=== PATIENT | female | born 1935 | race Caucasian/White ===

== ENCOUNTER 2016-05-19 10:23 | Emergency (ER) | payer OTHER ==
[2016-05-19 10:29] VITALS: BP 131/77; PULSE 90; TEMP 98.5; BMI 24.6
[2016-05-19] MEDS ORDERED: ACETAMINOPHEN 325 MG TABLET (FP) PO ONE (12:13)
--- NOTE | 2016-05-19 12:13 | PDOC ---
History of Present Illness - General Chief Complaint: Injury Stated Complaint: FALL, FOOT PAIN Time Seen by Provider: 05/19/16 12:05 History Source: Patient Exam Limitations: No Limitations - History of Present Illness Initial Comments: CHIEF COMPLAINT: 81 y/o afebrile female with PMH HTN, ACS (on Eliquis), CHF c/ o left ankle pain s/p slip and fall yesterday. HISTORY OF PRESENT ILLNESS: The patient slipped in her driveway yesterday and turned her ankle in an eversion fashion. She states she was able to walk on it but with pain. She put an MIGUE bandage on it and took tylenol. She denies head trauma, LOC, numbness/tingling in affected extremity. Vital signs on arrival are within normal limits. REVIEW OF SYSTEMS: GENERAL/CONSTITUTIONAL: No fever/chills. No weakness. No weight change. HEAD, EYES, EARS, NOSE AND THROAT: No change in vision. No ear pain or discharge. No sore throat. MUSCULOSKELETAL: +left ankle pain and swelling. No neck or back pain. SKIN: No rash or easy bruising. NEUROLOGIC: No headache, vertigo, loss of consciousness, or loss of sensation. PHYSICAL EXAM: VITAL_SIGNS: within normal limits GENERAL_APPEARANCE: alert, cooperative, no obvious discomfort. MENTAL_STATUS: speech clear, oriented X 3, responds appropriately to questions. NEURO: motor intact and sensory intact in injured extremity. EXTREMITIES: 2+ dorsalis pedis pulse in left foot. Edema and TTP of lateral malleolus of left ankle. Pain reproduced with eversion of left ankle. Pt can fully flex and extend affected extremity. No erythema, warmth or streaking to affected extremity. SKIN: warm, dry, good color. Past History - Past Medical History Allergies/Adverse Reactions: Allergies Allergy/AdvReac Type Severity Reaction Status Date / Time No Known Allergies Allergy Verified 05/19/16 10:29 Home Medications: Ambulatory Orders Aspirin [ASA -] 81 mg PO DAILY 09/14/14 Cholecalciferol (Vitamin D3) [Vitamin D3] 2,000 unit PO DAILY 09/14/14 Digoxin [Lanoxin -] 0.125 mg PO DAILY 09/14/14 Furosemide [Lasix -] 20 mg PO DAILY 09/14/14 Lactobacillus Acidophilus [Acidophilus] 1 tape PO DAILY 09/14/14 Metoprolol Succinate [Toprol Xl -] 50 mg PO DAILY 09/14/14 Sertraline HCl [Zoloft -] 25 mg PO DAILY 09/14/14 Valsartan [Diovan] 80 mg PO DAILY 09/14/14 Warfarin Na [Coumadin] 2 mg PO DAILY 09/14/14 Cardiac Disorders: Yes (MVP, leaky valve) COPD: Yes GI Disorders: Yes (hiatal hernia, GERD) HTN: Yes - Surgical History Cholecystectomy: Yes - Immunization History Immunization Up to Date: Yes - Psycho/Social/Smoking Cessation Hx Anxiety: No Suicidal Ideation: No Smoking Status: No Smoking History: Never smoked Have you smoked in the past 12 months: No Number of Cigarettes Smoked Daily: 0 Hx Alcohol Use: No Drug/Substance Use Hx: No Substance Use Type: None Hx Substance Use Treatment: No *Physical Exam - Vital Signs Last Vital Signs Temp Pulse Resp BP Pulse Ox 98.5 F 90 20 131/77 97 05/19/16 10:25 05/19/16 10:25 05/19/16 10:25 05/19/16 10:25 05/19/16 10:25 Procedures - Splinting Splint Location: Left: Ankle Pre-Proc Neuro Vasc Exam: normal Hand-Made Type: orthoglass Splint Type: Yes: Posterior Post-Proc Neuro Vasc Exam: normal Migue Bandage: 3" (2) Complications: No Medical Decision Making - Medical Decision Making A/P: 81 y/o female with left ankle sprain s/p slip and fall yesterday. Will r/ o fracture with an xray. Pt requesting tylenol. Xray left ankle IMPRESSION: Distal fibular fracture with lateral swelling. Put the patient's ankle in a posterior splint. Provided crutches and an orthopedic referral. Suggested she call Dr. Rivero today to schedule a follow up appointment as soon as possible. Pt instructed to return to the ER with any worsening or concerning symptoms. The patient verbalizes understanding of all instructions, has no further questions and is awaiting discharge. *DC/Admit/Observation/Transfer Diagnosis at time of Disposition: Fibula fracture Qualifiers: Encounter type: initial encounter Fibula location: distal Fracture type: closed Fracture morphology: other fracture Laterality: left Qualified Code(s): S82.832A - Other fracture of upper and lower end of left fibula, initial encounter for closed fracture - Discharge Dispostion Disposition: HOME Condition at time of disposition: Improved - Referrals Referrals: Chandrakant Wyatt MD [Primary Care Provider] - Clint Rivero MD [Staff Physician] - Call tomorrow - Patient Instructions Printed Discharge Instructions: DI for Ankle Fracture, How to Use Crutches Additional Instructions: Discharge Instructions: -Call Dr. Rivero as soon as possible to schedule follow up appointment -Use crutches until follow up appointment with Dr. Rivero -Take Tylenol for pain -Return to the ER with any worsening or concerning symptoms.
[2016-05-19] MEDS ORDERED: ACETAMINOPHEN 325 MG TABLET (FP) ONE (12:20)
== END 2016-05-19 13:40 | disposition home or self-care (01) ==
LOC: JER 10:23 → JERFT 10:23
PROC: 2W3TX1Z Immobilization of Left Foot using Splint (ICD-10-PCS; principal; 2016-05-19)
DX: S82.832A Other fracture of upper and lower end of left fibula, initial encounter for closed fracture (principal); X58.XXXA Exposure to other specified factors, initial encounter; Y93.9 Activity, unspecified; Y92.008 Other place in unspecified non-institutional (private) residence as the place of occurrence of the external cause; J44.9 Chronic obstructive pulmonary disease, unspecified; I10 Essential (primary) hypertension; K21.9 Gastro-esophageal reflux disease without esophagitis; Z79.82 Long term (current) use of aspirin
CPT/HCPCS: 29515; 73610-TC-LT; 73630-TC-LT; 99282-25

== ENCOUNTER 2017-11-21 17:24 | Observation (INO) | payer OTHER ==
--- NOTE | 2017-11-21 17:33 | PDOC ---
Rapid Medical Evaluation Time Seen by Provider: 11/21/17 17:29 Medical Evaluation: Allergies Allergy/AdvReac Type Severity Reaction Status Date / Time No Known Allergies Allergy Verified 05/19/16 10:29 11/21/17 17:29 I have performed a brief in-person evaluation of this patient. The patient presents with a chief complaint of: new onset a-fib. Patient seen at doctor's office today and referred to ed for irregular heartbeat. Complaining of a cough and shortness of breath Pertinent physical exam findings are appears well lungs clear bilaterally Heart: irregular rhythm I have ordered the following ekg, labs The patient will proceed to the Ed for further evaluation. Discharge Disposition - Referrals Referrals: Melissa Mccurdy MD [Primary Care Provider] - - Patient Instructions - Post Discharge Activity
[2017-11-21 17:34] VITALS: BMI 25.5
[2017-11-21] MEDS ORDERED: SODIUM CHLORIDE 500 ML IV STA (17:53)
--- NOTE | 2017-11-21 17:55 | PDOC ---
History of Present Illness - General Chief Complaint: Irregular Heart Beat Stated Complaint: SENT BY PCP Time Seen by Provider: 11/21/17 17:29 History Source: Patient, Family - History of Present Illness Associated Symptoms: reports: cough. denies: chest pain, fever/chills, shortness of breath, weakness Past History - Past Medical History Allergies/Adverse Reactions: Allergies Allergy/AdvReac Type Severity Reaction Status Date / Time No Known Allergies Allergy Verified 11/21/17 17:31 Home Medications: Ambulatory Orders Metoprolol Succinate [Toprol Xl -] 50 mg PO BID 09/14/14 Sertraline HCl [Zoloft -] 25 mg PO DAILY 09/14/14 Alendronate Sodium [Binosto] 70 mg PO Q7D 11/21/17 Apixaban [Eliquis] 2.5 mg PO DAILY 11/21/17 Ferrous Sulfate 325 mg PO DAILY 11/21/17 Hydralazine HCl 50 mg PO DAILY 11/21/17 Olmesartan Medoxomil 20 mg PO DAILY 11/21/17 Pantoprazole Sodium 40 mg PO DAILY 11/21/17 Tiotropium [place] [Spiriva] 1 inh IH DAILY 11/21/17 Cardiac Disorders: Yes (MVP, leaky valve, hx of a.fib) COPD: Yes GI Disorders: Yes (hiatal hernia, GERD) HTN: Yes - Surgical History Cardiac Surgery: Yes (ppm) Cholecystectomy: Yes - Immunization History Immunization Up to Date: Yes - Suicide/Smoking/Psychosocial Hx Smoking Status: No Smoking History: Never smoked Have you smoked in the past 12 months: No Number of Cigarettes Smoked Daily: 0 Information on smoking cessation initiated: No Hx Alcohol Use: No Drug/Substance Use Hx: No Substance Use Type: None Hx Substance Use Treatment: No Review of Systems - Review of Systems Constitutional: No: Chills, Fever Respiratory: Yes: Cough. No: Shortness of Breath Cardiac (ROS): Yes: Palpitations. No: Chest Pain *Physical Exam - Vital Signs Last Vital Signs Temp Pulse Resp BP Pulse Ox 98.4 F 116 H 18 127/76 100 11/21/17 17:31 11/21/17 17:31 11/21/17 17:31 11/21/17 17:31 11/21/17 17:31 - Physical Exam General Appearance: Yes: Appropriately Dressed. No: Apparent Distress HEENT: positive: Normal Voice Neck: positive: Supple Respiratory/Chest: positive: Lungs Clear, Normal Breath Sounds. negative: Respiratory Distress Cardiovascular: positive: Irregularly Irregular Gastrointestinal/Abdominal: positive: Soft. negative: Tender Extremity: positive: Normal Inspection. negative: Pedal Edema Integumentary: positive: Dry, Warm Neurologic: positive: Fully Oriented, Alert, Normal Mood/Affect ED Treatment Course - LABORATORY CBC & Chemistry Diagram: 11/21/17 18:35 11/21/17 18:35 Medical Decision Making - Medical Decision Making 11/21/17 17:54 82-year-old female, history of A. 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 Pt reports non-productive cough for approximately 1 week, no hemoptysis, shortness of breath, chest pain, fever or chills. Found to have irregular heart rate in card's office today per family. Patient does report intermittent palpitations. No weakness, dizziness or syncope See exam Rapid afib Afib @124BPM on EKG done at triage [facility] rebecca in NAD -will attempt to slow down HR w/ IVF given HR of 110 on monitor now -already on eliquis -labs -cxr r/o PNA given cough -dispo pending 11/21/17 18:00 11/21/17 18:53 On reassessment, pt's HR now 102 on monitor w/ gentle IV hydration. At this time pt signed out to Dr Ruiz pending w/u and dispo *DC/Admit/Observation/Transfer Diagnosis at time of Disposition: Cough Afib Qualifiers: Atrial fibrillation type: chronic Qualified Code(s): I48.2 - Chronic atrial fibrillation - Referrals Referrals: Melissa Mccurdy MD [Primary Care Provider] - - Patient Instructions - Post Discharge Activity
[2017-11-21 18:46] LABS: BASO % 0.8 % (0-2.0); EOS % 2.6 % (0-4.5); HEMATOCRIT 36.2 % (32.4-45.2); HEMOGLOBIN 12.1 GM/dL (10.7-15.3); LYMPH % 18.8 % (8-40); MCH 29.4 pg (25.7-33.7); MCHC 33.5 g/dl (32.0-36.0); MEAN CELL VOLUME 87.9 fl (80-96); MEAN PLT VOLUME 9.4 fl (7.5-11.1); MONO % 11.1 % (3.8-10.2); NEUT % 66.7 % (42.8-82.8); PLATELET COUNT 240 K/MM3 (134-434); RBC 4.11 M/mm3 (3.60-5.2); RDW 14.3 % (11.6-15.6); WHITE BLOOD COUNT 9.4 K/mm3 (4.0-10.0)
[2017-11-21 19:15] LABS: INR 1.11 (0.83-1.09); PROTHROMBIN TIME (PATIENT) 13.1 SEC (9.7-13.0)
[2017-11-21 19:17] LABS: ACTIVATED PTT 27.9 SECONDS (25.2-36.5)
[2017-11-21 19:30] LABS: ALBUMIN 3.4 g/dl (3.4-5.0); ALK PHOS 55 U/L (45-117); ANION GAP 8 MMOL/L (8-16); BILIRUBIN,TOTAL 0.7 mg/dL (0.2-1); BLOOD UREA NITROGEN 18 mg/dL (7-18); CALCIUM 8.7 mg/dL (8.5-10.1); CHLORIDE 110 mmol/L (98-107); CO2 22 mmol/L (21-32); CREATININE 1.1 mg/dL (0.55-1.3); GLUCOSE,RANDOM 93 mg/dL (74-106); POTASSIUM 4.1 mmol/L (3.5-5.1); SGOT/AST 23 U/L (15-37); SGPT/ALT 18 U/L (13-61); SODIUM 140 mmol/L (136-145); TOT PROT 7.3 g/dl (6.4-8.2)
[2017-11-21] MEDS ORDERED: FUROSEMIDE 40 MG/4 ML INJECTABLE VIAL IVPUSH ONE (20:20)
--- NOTE | 2017-11-21 20:35 | PDOC ---
History of Present Illness - General Chief Complaint: Irregular Heart Beat Stated Complaint: SENT BY PCP Time Seen by Provider: 11/21/17 17:29 Past History - Past Medical History Allergies/Adverse Reactions: Allergies Allergy/AdvReac Type Severity Reaction Status Date / Time No Known Allergies Allergy Verified 11/21/17 17:31 Home Medications: Ambulatory Orders Metoprolol Succinate [Toprol Xl -] 50 mg PO BID 09/14/14 Sertraline HCl [Zoloft -] 25 mg PO DAILY 09/14/14 Alendronate Sodium [Binosto] 70 mg PO Q7D 11/21/17 Apixaban [Eliquis] 2.5 mg PO DAILY 11/21/17 Ferrous Sulfate 325 mg PO DAILY 11/21/17 Hydralazine HCl 50 mg PO DAILY 11/21/17 Olmesartan Medoxomil 20 mg PO DAILY 11/21/17 Pantoprazole Sodium 40 mg PO DAILY 11/21/17 Tiotropium [place] [Spiriva] 1 inh IH DAILY 11/21/17 Cardiac Disorders: Yes (MVP, leaky valve, hx of a.fib) COPD: Yes GI Disorders: Yes (hiatal hernia, GERD) HTN: Yes - Surgical History Cardiac Surgery: Yes (ppm) Cholecystectomy: Yes - Immunization History Immunization Up to Date: Yes - Suicide/Smoking/Psychosocial Hx Smoking Status: No Smoking History: Never smoked Have you smoked in the past 12 months: No Number of Cigarettes Smoked Daily: 0 Information on smoking cessation initiated: No Hx Alcohol Use: No Drug/Substance Use Hx: No Substance Use Type: None Hx Substance Use Treatment: No *Physical Exam - Vital Signs Last Vital Signs Temp Pulse Resp BP Pulse Ox 98.4 F 116 H 18 127/76 97 11/21/17 17:31 11/21/17 17:31 11/21/17 17:31 11/21/17 17:31 11/21/17 18:25 ED Treatment Course - LABORATORY CBC & Chemistry Diagram: 11/21/17 18:35 11/21/17 18:35 - ADDITIONAL ORDERS Additional order review: Laboratory Results 11/21/17 11/21/17 11/21/17 18:35 18:35 18:35 PT with INR 13.10 H INR 1.11 H PTT (Actin FS) 27.9 Sodium 140 Potassium 4.1 Chloride 110 H Carbon Dioxide 22 Anion Gap 8 BUN 18 Creatinine 1.1 Creat Clearance w eGFR 47.32 Random Glucose 93 Calcium 8.7 Total Bilirubin 0.7 AST 23 ALT 18 Alkaline Phosphatase 55 Troponin I < 0.02 B-Natriuretic Peptide 4016.8 H Total Protein 7.3 Albumin 3.4 11/21/17 18:35 RBC 4.11 MCV 87.9 MCHC 33.5 RDW 14.3 D MPV 9.4 D Neutrophils % 66.7 Lymphocytes % 18.8 D Monocytes % 11.1 H Eosinophils % 2.6 D Basophils % 0.8 - Medications Given in the ED: ED Medications Discontinued Medications Generic Name Dose Route Start Last Admin Trade Name Freq PRN Reason Stop Dose Admin Sodium Chloride 500 mls @ 500 mls/hr 11/21/17 17:53 11/21/17 18:42 Normal Saline - IV 11/21/17 18:52 500 mls/hr ASDIR STA Administration *DC/Admit/Observation/Transfer Diagnosis at time of Disposition: Cough Afib Qualifiers: Atrial fibrillation type: chronic Qualified Code(s): I48.2 - Chronic atrial fibrillation - Discharge Dispostion Condition at time of disposition: Stable Decision to Admit order: Yes - Referrals Referrals: Melissa Mccurdy MD [Primary Care Provider] - - Patient Instructions - Post Discharge Activity
--- NOTE | 2017-11-21 20:40 | CONS ---
DATE OF CONSULTATION: DATE OF DICTATION: 11/21/2017 CARDIOLOGY CONSULTATION REFERRING PHYSICIAN: Emergency room physician HISTORY OF PRESENT ILLNESS: An 82-year-old Amharic female came to the office with history of persistent cough accompanied by clear fixed expectoration for the past several days. She denies having dyspnea either at rest or with exertion, no paroxysmal nocturnal dyspnea or orthopnea reported. History of palpitations. According to her granddaughter, patient has not been able to sleep properly for the past several days, partly related to cough and she feels that she was also dyspneic. There is no history of chest pain or discomfort. 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 PAST HISTORY: As mentioned in the history of present illness. SURGICAL HISTORY: Status post cholecystectomy. Status post bilateral cataract extraction and intraocular lens implantation. SOCIAL HISTORY: . Had 3 children, 2 sons and a daughter. Both sons are , one at 37 due to chronic renal failure and myocardial infarction. The other son in his 50s due to complications of automobile accident. FAMILY HISTORY: Father at age 89 of unknown cause. Mother at 90, she had hypertension. She has 2 brothers who are alive and are in their late 70s and early 80s. One of them had suffered a cerebrovascular accident. ALLERGIES: None reported. MEDICATION: Prior to admission: 1. Hydralazine 15 mg p.o. t.i.d. 2. Metoprolol succinate 50 mg p.o. b.i.d. 3. Eliquis 2.5 mg p.o. b.i.d. 4. Pantoprazole 40 mg p.o. daily. 5. Amlodipine 10 mg p.o. daily. 6. Sertraline 25 mg p.o. daily. 7. Vitamin D3 1000 international units p.o. daily. 8. Lasix 20 mg p.o. daily. 9. Spiriva 18 mcg 1 inhalation daily. 10. Benicar 20 mg p.o. daily. 11. Fosamax 70 mg p.o. once a week. REVIEW OF SYSTEMS: Constitutional: No history of chills, fever, or night sweats. No history of unintentional weight loss. HEENT: No history of headaches, diplopia, blurred vision reported. No history of epistaxis, hoarseness, tinnitus, and history of deafness. Cardiovascular: See history of present illness. Respiratory: See history of present illness. No history of hemoptysis. Gastrointestinal: See history of present illness. No history of recent nausea, vomiting, melena or hematemesis. Neurological: See history of present illness. No history of seizures, syncope. Endocrine: No history of polyuria, polydipsia. No history of intolerance to cold or warm weather. Genitourinary: No history of dysuria, frequency, or hematuria. Hematological: History of bleeding, ecchymosis. History of anemia related to GI blood loss. PHYSICAL EXAMINATION: General: An 82-year-old female with mildly dyspneic. There was no pallor, cyanosis, clubbing. Vital signs: Blood pressure 127/76 mmHg. Pulse was 116 beats per minute and irregularly irregular. Respirations 18 per minute. Temperature 98.4 degrees Fahrenheit. Weight 118 pounds. Oxygen saturation 97% on room air. Neck: Supple. Slightly positive hepatojugular reflex, no jugulovenous distention was appreciated. Carotids were 2+, upstrokes were normal, ? faint right carotid bruit with radiation of murmur. No thyromegaly. Heart: PMI was in the 5th intercostal space, no heaves or thrills. S1 was variable, S2 was normal. Grade 1-2 ejection systolic murmur was heard at the 2nd right intercostal space, ending in early systole. No diastolic murmur was heard. There was a grade 1/6 apical systolic murmur that was poorly radiating. Lungs: Bilateral coarse crepitations involving both bases up to the mid zone. Abdomen: Protuberant, soft, and nontender. No hepatosplenomegaly or palpable masses were felt. Bowel sounds were present. Extremities: No calf tenderness or dependent edema, femoral pulses were 2+, dorsalis pedis pulses were 1+. Posterior tibial pulses were weak. LABORATORY DATA: CBC: WBC count 9400. Hemoglobin 12.1 g/dL, platelet count 240,000. Chemistry: Sodium 140, potassium 4.1, chloride 110, CO2 of 22 mmol/L. BUN 18, creatinine 1.1 mg/dL. Glucose 93 mg/dL. Troponin was less than 0.02. BNP was 416.8. pending. ECG: Atrial fibrillation with rapid ventricular response. Nonspecific ST and T wave abnormalities. IMPRESSION: 1. New onset atrial fibrillation with rapid ventricular response. 2. Congestive heart failure, [place] Heart Classification 2. 3. Cough, etiology. a. Secondary to congestive heart failure. b. Exacerbation of chronic bronchitis. 4. Sick sinus syndrome status post permanent pacemaker. 5. Hypertension, hypertensive cardiovascular disease. Currently normotensive. 6. Aortic valvular disease with aortic regurgitation. 7. Mitral valvular disease, probable mitral valve prolapse with mitral regurgitation. 8. History of osteoporosis. 9. History of vitamin D deficiency. 10. History of anxiety disorder. RECOMMENDATION: 1. IV Lasix. 2. Follow up ECG and enzymes. 3. Rate control with IV Cardizem. 4. If necessary, consider digitalization. 5. Continue medications as outlined. 6. Close followup of hemoglobin and hematocrit. 7. Admit to telemetry. Prognosis guarded. Thank you for your referral. Yours sincerely, LINDA HENSLEY M.D. [id number]
--- NOTE | 2017-11-21 20:55 | PDOC ---
*Physical Exam - Vital Signs Last Vital Signs Temp Pulse Resp BP Pulse Ox 98.4 F 116 H 18 127/76 97 11/21/17 17:31 11/21/17 17:31 11/21/17 17:31 11/21/17 17:31 11/21/17 18:25 ED Treatment Course - LABORATORY CBC & Chemistry Diagram: 11/21/17 18:35 11/21/17 18:35 - ADDITIONAL ORDERS Additional order review: Laboratory Results 11/21/17 11/21/17 11/21/17 18:35 18:35 18:35 PT with INR 13.10 H INR 1.11 H PTT (Actin FS) 27.9 Sodium 140 Potassium 4.1 Chloride 110 H Carbon Dioxide 22 Anion Gap 8 BUN 18 Creatinine 1.1 Creat Clearance w eGFR 47.32 Random Glucose 93 Calcium 8.7 Total Bilirubin 0.7 AST 23 ALT 18 Alkaline Phosphatase 55 Troponin I < 0.02 B-Natriuretic Peptide 4016.8 H Total Protein 7.3 Albumin 3.4 11/21/17 18:35 RBC 4.11 MCV 87.9 MCHC 33.5 RDW 14.3 D MPV 9.4 D Neutrophils % 66.7 Lymphocytes % 18.8 D Monocytes % 11.1 H Eosinophils % 2.6 D Basophils % 0.8 - Medications Given in the ED: ED Medications Discontinued Medications Generic Name Dose Route Start Last Admin Trade Name Freq PRN Reason Stop Dose Admin Sodium Chloride 500 mls @ 500 mls/hr 11/21/17 17:53 11/21/17 18:42 Normal Saline - IV 11/21/17 18:52 500 mls/hr ASDIR STA Administration Medical Decision Making - Medical Decision Making 11/21/17 20:53 Sign out from YUMIKO Torres 82 yo female PMH of paroxysmal AFIB , HTN, CAD and CVA presented to the ED today from Dr. Jones office for several days of coughing and mild dyspnea with sleep. Patient found to be in Afib with RvR on arrival. Patient given 500ml NS and found to develop fluid in the lungs with bilateral crackles on exam. 40mg IV Lasix given. Dr. Jones would like patient to be admitted to Tele OBS and if required, given Digoxin Spoke with YONI Reddy who agrees to have pt admitted to Tele O[facility] *DC/Admit/Observation/Transfer Diagnosis at time of Disposition: Cough Afib Qualifiers: Atrial fibrillation type: chronic Qualified Code(s): I48.2 - Chronic atrial fibrillation - Discharge Dispostion Condition at time of disposition: Stable Decision to Admit order Date/Time: Decision to Admit Order Category Date Time Status Decision to Admit to Hospital Routine Admission 11/21/17 20:43 Ordered Decision to Admit to Hospital Routine Admission 11/21/17 20:50 Ordered - Referrals Referrals: Melissa Mccurdy MD [Primary Care Provider] - - Patient Instructions - Post Discharge Activity
[2017-11-21] MEDS ORDERED: FUROSEMIDE 40 MG/4 ML INJECTABLE VIAL ONE (21:19)
--- NOTE | 2017-11-21 21:51 | HP ---
CHIEF COMPLAINT: cough PCP: Otto Cardio: HISTORY OF PRESENT ILLNESS: This is an 82 year old female with a significant past medical history of CHF, HTN, COPD who presented to the ED with a one week history of cough. She reports the cough as productive with white phlegm. Denies fever, chills. Denies chest pain. She was sent to the ED for further evaluation by her intake counselor due to rapid irregular heart rate. ER course was notable for: (1) Trop neg (2) BNP 4016 (3) CXR with + congestion Recent Travel: pt denies PAST MEDICAL HISTORY: HTN, CHF, AFIB, MVP, CVA, anemia, COPD, GERD, hiatal hernia, CKD PAST SURGICAL HISTORY: cholecystectomy PPM Social History: Smoking: pt denies Alcohol: occ wine Drugs: pt denies Family History: mother age 90, HTN father age 88, unk son age 32, HTN, heart problems son in his 50s, MVC with later complications, ?sepsis daughter alive with HTN< hypothyroid Allergies No Known Allergies Allergy (Verified 11/21/17 17:31) HOME MEDICATIONS: 3 Medication Instructions Recorded Metoprolol Succinate [Toprol Xl -] 50 mg PO BID 09/14/14 Sertraline HCl [Zoloft -] 25 mg PO DAILY 09/14/14 Alendronate Sodium [Binosto] 70 mg PO Q7D 11/21/17 Apixaban [Eliquis] 2.5 mg PO DAILY 11/21/17 Ferrous Sulfate 325 mg PO DAILY 11/21/17 Hydralazine HCl 50 mg PO DAILY 11/21/17 Valsartan 160 mg PO DAILY 11/21/17 Pantoprazole Sodium 40 mg PO DAILY 11/21/17 Tiotropium [place] [Spiriva] 1 inh IH DAILY 11/21/17 REVIEW OF SYSTEMS CONSTITUTIONAL: Absent: fever, chills, diaphoresis, generalized weakness, malaise, loss of appetite, weight change HEENT: Absent: rhinorrhea, nasal congestion, throat pain, throat swelling, difficulty swallowing, mouth swelling, ear pain, eye pain, visual changes CARDIOVASCULAR: Absent: chest pain, syncope, palpitations, irregular heart rate, lightheadedness , peripheral edema RESPIRATORY: Present: cough Absent: shortness of breath, wheezing, stridor, hemoptysis GASTROINTESTINAL: Absent: abdominal pain, abdominal distension, nausea, vomiting, diarrhea, constipation, melena, hematochezia GENITOURINARY: Absent: dysuria, frequency, urgency, hesitancy, hematuria, flank pain, genital pain MUSCULOSKELETAL: Absent: myalgia, arthralgia, joint swelling, back pain, neck pain SKIN: Absent: rash, itching, pallor HEMATOLOGIC/IMMUNOLOGIC: Absent: easy bleeding, easy bruising, lymphadenopathy, frequent infections ENDOCRINE: Absent: unexplained weight gain, unexplained weight loss, heat intolerance, cold intolerance NEUROLOGIC: Absent: headache, focal weakness or paresthesias, dizziness, unsteady gait, seizure, mental status changes, bladder or bowel incontinence PSYCHIATRIC: Absent: anxiety, depression, suicidal or homicidal ideation, hallucinations. PHYSICAL EXAMINATION Vital Signs - 24 hr 3 11/21/17 11/21/17 17:31 18:25 Temperature 98.4 F Pulse Rate 116 H Respiratory 18 Rate Blood Pressure 127/76 O2 Sat by Pulse 100 97 Oximetry (%) GENERAL: Awake, alert, and fully oriented, in no acute distress. HEAD: Normal with no signs of trauma. EYES: Pupils equal, round and reactive to light, extraocular movements intact, sclera anicteric, conjunctiva clear. No lid lag. EARS, NOSE, THROAT: Ears normal, nares patent, oropharynx clear without exudates. Moist mucous membranes. NECK: Normal range of motion, supple without lymphadenopathy, JVD, or masses. LUNGS: Crackles bilat bases, right lung benitez with crackles 1/[address] up. No wheezes. No accessory muscle use. HEART: Irregular rate and rhythm, normal S1 and S2 without murmur, rub or gallop. ABDOMEN: Soft, nontender, not distended, normoactive bowel sounds, no guarding, no rebound, no masses. No hepatomegaly or splenomegaly. MUSCULOSKELETAL: Normal range of motion at all joints. No bony deformities or tenderness. No CVA tenderness. UPPER EXTREMITIES: 2+ pulses, warm, well-perfused. No cyanosis. No clubbing. No peripheral edema. LOWER EXTREMITIES: 2+ pulses, warm, well-perfused. No calf tenderness. No peripheral edema. NEUROLOGICAL: Cranial nerves II-XII intact. Normal speech. Normal gait. PSYCHIATRIC: Cooperative. Good eye contact. Appropriate mood and affect. SKIN: Warm, dry, normal turgor, no rashes or lesions noted, normal capillary refill. Laboratory Results - last 24 hr 3 11/21/17 11/21/17 11/21/17 18:35 18:35 18:35 WBC 9.4 RBC 4.11 Hgb 12.1 Hct 36.2 D MCV 87.9 MCH 29.4 D MCHC 33.5 RDW 14.3 D Plt Count 240 MPV 9.4 D Absolute Neuts (auto) 6.3 Neutrophils % 66.7 Lymphocytes % 18.8 D Monocytes % 11.1 H Eosinophils % 2.6 D Basophils % 0.8 Nucleated RBC % 0 PT with INR 13.10 H INR 1.11 H PTT (Actin FS) 27.9 Sodium 140 Potassium 4.1 Chloride 110 H Carbon Dioxide 22 Anion Gap 8 BUN 18 Creatinine 1.1 Creat Clearance w eGFR 47.32 Random Glucose 93 Calcium 8.7 Total Bilirubin 0.7 AST 23 ALT 18 Alkaline Phosphatase 55 Troponin I < 0.02 B-Natriuretic Peptide 4016.8 H Total Protein 7.3 Albumin 3.4 ECG Afib with RVR vent rate 124, QTC 488 inverted T waves lead III ASSESSMENT/PLAN: 82yF with PMH HTN, CHF, AFIB, MVP, CVA, anemia, COPD, GERD, hiatal hernia, CKD presented to the ED with a one week history of cough. Sent by cardiology for irregular rapid heart rate. CHF exac - given lasix in ED - cardiology consult appreciated, defer daily lasix dosing to cardiology - echo - trend troponins, first neg Afib with RVR - cardiology recommended addition of digoxin if HR remains elevated as per ED team - monitor on tele - cont home eliquis HTN - cont home meds: toprol, valsartan, hydralazine COPD - cont home spiriva - appears to be asymptomatic at present - albuterol nebs prn DVT PPX - cont home eliquis FEN - tolerating po - BMP in am - low sodium diet as tolerated Dispo: Pt currently requires further cardiac monitoring. Visit type - Emergency Visit Emergency Visit: Yes ED Registration Date: 11/21/17 Care time: The patient presented to the Emergency Department on the above date and was hospitalized for further evaluation of their emergent condition. - New Patient This patient is new to me today: Yes Date on this admission: 11/21/17 - Critical Care Critical Care patient: No
[2017-11-21] MEDS ORDERED: ALBUTEROL SO4 0.083% IH SOL 2.5 MG/3 ML VIAL.NEB. NEB PRN (22:17)
[2017-11-21] MEDS ORDERED: DIGOXIN 0.5 MG/2 ML AMPUL IVPUSH ONE (22:27)
[2017-11-21] MEDS ORDERED: DIGOXIN 0.5 MG/2 ML AMPUL ONE (22:47)
[2017-11-22] MEDS ORDERED: DIGOXIN 0.125 MG TABLET (FP) PO ONE (04:30)
[2017-11-22] MEDS ORDERED: DIGOXIN 0.125 MG TABLET (FP) ONE (04:47)
[2017-11-22 07:26] LABS: BASO % 0.9 % (0-2.0); EOS % 2.3 % (0-4.5); HEMATOCRIT 36.7 % (32.4-45.2); HEMOGLOBIN 12.3 GM/dL (10.7-15.3); LYMPH % 16.4 % (8-40); MCH 29.2 pg (25.7-33.7); MCHC 33.4 g/dl (32.0-36.0); MEAN CELL VOLUME 87.4 fl (80-96); MEAN PLT VOLUME 8.9 fl (7.5-11.1); MONO % 12.9 % (3.8-10.2); NEUT % 67.5 % (42.8-82.8); PLATELET COUNT 209 K/MM3 (134-434); RBC 4.19 M/mm3 (3.60-5.2); RDW 14.1 % (11.6-15.6); WHITE BLOOD COUNT 8.3 K/mm3 (4.0-10.0)
[2017-11-22 08:14] LABS: ANION GAP 10 MMOL/L (8-16); BLOOD UREA NITROGEN 18 mg/dL (7-18); CALCIUM 8.8 mg/dL (8.5-10.1); CHLORIDE 110 mmol/L (98-107); CO2 24 mmol/L (21-32); CREATININE 0.8 mg/dL (0.55-1.3); GLUCOSE,RANDOM 87 mg/dL (74-106); MAGNESIUM 2.3 mg/dL (1.8-2.4); PHOSPHOROUS 3.6 mg/dL (2.5-4.9); POTASSIUM 3.6 mmol/L (3.5-5.1); SODIUM 144 mmol/L (136-145)
[2017-11-22] MEDS ORDERED: POTASSIUM CHLORIDE ORAL LIQUID 20 MEQ/15 ML PO ONE (09:15)
[2017-11-22] MEDS: APIXABAN 2.5 MG TABLET PO SCH ×2 (09:28→21:13)
[2017-11-22] MEDS: VALSARTAN 160 MG TABLET (UD) PO SCH (09:28)
[2017-11-22] MEDS: FERROUS SO4 325 MG TABLET (FP) PO SCH (09:28)
[2017-11-22] MEDS: PANTOPRAZOLE 40 MG TABLET (FP) PO SCH (09:29)
[2017-11-22] MEDS: FUROSEMIDE 40 MG/4 ML INJECTABLE VIAL IVPUSH SCH (09:30)
[2017-11-22] MEDS: SERTRALINE HCL 25 MG TABLET (FP) PO SCH (09:31)
[2017-11-22] MEDS ORDERED: dilTIAZem HCL 25 MG/5 ML - 5 ML VIAL IVPUSH PRN (09:38)
[2017-11-22] MEDS ORDERED: TIOTROPIUM BROMIDE 2.5 MCG (SPIRIVA) RESPIMAT INHALER IH SCH (10:00)
[2017-11-22] MEDS ORDERED: hydrALAZINE HCL 50 MG TABLET (FP) PO SCH ×2 (10:00→16:02)
--- NOTE | 2017-11-22 11:16 | ECHO ---
Name: TONY ROYAL Exam:Adult Echocardiogram Study Date: 11/22/2017 08:39 AM Age: 82 yrs Reason For Study: CHF Height: 57 in Weight: 118 lb BSA: 1.4 m2 MMode/2D Measurements & Calculations IVSd: 1.0 cm Ao root diam: 2.6 cm LVIDd: 5.1 cm LA dimension: 4.0 cm LVIDs: 3.7 cm LVPWd: 0.77 cm EDV(Teich): 126.1 ml LAV (MOD-bp): 91.0 ml ESV(Teich): 57.0 ml TAPSE: 2.2 cm RV S [place]: 13.5 cm/sec Doppler Measurements & Calculations MV E max [place]: 81.4 cm/sec Ao V2 max: 230.8 cm/sec MV A max [place]: 29.9 cm/sec Ao max P.3 mmHg MV E/A: 2.7 Ao V2 mean: 131.0 cm/sec MV dec time: 0.10 sec Ao mean P.4 mmHg Ao V2 VTI: 37.8 cm AI P1/2t: 465.0 msec AI max [place]: 364.0 cm/sec LV V1 max P.2 mmHg AI max P.1 mmHg LV V1 mean P.1 mmHg AI dec slope: 229.3 cm/sec2 LV V1 max: 74.8 cm/sec LV V1 mean: 47.6 cm/sec LV V1 VTI: 14.1 cm MR max [place]: 504.7 cm/sec TR max [place]: 259.3 cm/sec MR max P.1 mmHg TR max P.0 mmHg PI end-d [place]: 136.4 cm/sec Med Peak E' [place]: 10.4 cm/sec Med E/e': 7.8 Lat Peak E' [place]: 3.2 cm/sec Lat E/e': 25.3 Procedure A complete two-dimensional transthoracic echocardiogram was performed (2D, M-mode, Doppler and color flow Doppler). Left Ventricle The left ventricular size, thickness and function are normal. Ejection Fraction = 60%. The transmitra l spectral Doppler flow pattern is suggestive of impaired LV relaxation. Right Ventricle The right ventricle is normal in size and function. Atria Normal left and right atrial size and function. Mitral Valve There is mild mitral annular calcification. There is mild mitral regurgitation. Tricuspid Valve There is mild tricuspid regurgitation. Right ventricular systolic pressure is 32.8 mmhg. Aortic Valve There is mild to moderate aortic sclerosis.;. Mild aortic regurgitation. Pulmonic Valve The pulmonic valve is not well seen, but is grossly normal. Trace pulmonic valvular regurgitation. Great Vessels The aortic root is normal size. Pericardium/Pleura There is no pericardial effusion. There is no pleural effusion. Interpretation Summary The left ventricular size, thickness and function are normal Ejection Fraction = 60%. There is mild mitral regurgitation. There is mild tricuspid regurgitation. There is mild to moderate aortic sclerosis.; Mild aortic regurgitation. Trace pulmonic valvular regurgitation. Right ventricular systolic pressure is 32.8 mmhg. MD Jose C Greco 11/22/2017 11:16 AM
--- NOTE | 2017-11-22 13:31 | PN ---
Progress Note, Physician Chief Complaint: Pt lying in stretcher in no acute distress. Reports mild sob upon exertion otherwise denies any chest pain, sob, lightheadedness, dizziness, n/v/d - Current Medication List Current Medications: Active Medications Albuterol Sulfate (Ventolin 0.083% Nebulizer Soln -) 1 amp NEB Q4H PRN PRN Reason: SHORT OF BREATH/WHEEZING Apixaban (Eliquis -) 2.5 mg PO BID [facility] Last Admin: 11/22/17 09:28 Dose: 2.5 mg Diltiazem HCl (Cardizem Injection -) 5 mg IVPUSH Q4H PRN PRN Reason: TACHYCARDIA Ferrous Sulfate (Feosol -) 325 mg PO DAILY [facility] Last Admin: 11/22/17 09:28 Dose: 325 mg Furosemide (Lasix Injection -) 40 mg IVPUSH DAILY [facility] Last Admin: 11/22/17 09:30 Dose: 40 mg Hydralazine HCl (Apresoline -) 50 mg PO DAILY [facility] Last Admin: 11/22/17 09:28 Dose: 50 mg Metoprolol Succinate (Toprol Xl -) 50 mg PO BID [facility] Last Admin: 11/22/17 09:29 Dose: 50 mg Pantoprazole Sodium (Protonix -) 40 mg PO DAILY [facility] Last Admin: 11/22/17 09:29 Dose: 40 mg Sertraline HCl (Zoloft -) 25 mg PO DAILY [facility] Last Admin: 11/22/17 09:31 Dose: 25 mg Tiotropium [place] (Spiriva Respimat) 2 puff IH DAILY [facility] Last Admin: 11/22/17 10:21 Dose: 2 puff Valsartan (Diovan -) 160 mg PO DAILY [facility] Last Admin: 11/22/17 09:28 Dose: 160 mg - Objective Vital Signs: Vital Signs Temperature 98.7 F 11/22/17 09:22 Pulse Rate 110 H 11/22/17 09:22 Respiratory Rate 22 H 11/22/17 09:22 Blood Pressure 132/78 11/22/17 09:22 O2 Sat by Pulse Oximetry (%) 97 11/22/17 09:22 Constitutional: Yes: Well Nourished, No Distress Cardiovascular: Yes: Tachycardia, Pulse Irregular Respiratory: Yes: Regular, CTA Bilaterally, Rales (bibasilar). No: Accessory Muscle Use, SOB, Tachypnea, Wheezes Gastrointestinal: Yes: WNL, Normal Bowel Sounds, Soft. No: Distention, Tenderness Genitourinary: Yes: WNL Edema: Yes Edema: LLE: Trace, RLE: Trace Neurological: Yes: WNL, Alert, Oriented Psychiatric: Yes: WNL, Alert, Oriented Labs: CBC, BMP 11/22/17 06:25 11/22/17 06:25 INR, PTT INR 1.11 (0.83-1.09) H 11/21/17 18:35 Problem List - Problems (1) Atrial fibrillation with RVR Assessment/Plan: afib w/ rvr HR in 110s pt asymptomatic metoprolol increased for better rate control cardizem iv prn continue eliquis cardiology following tele monitoring Code(s): I48.91 - UNSPECIFIED ATRIAL FIBRILLATION (2) CHF (congestive heart failure) Assessment/Plan: acute on chronic. 2/2 uncontrolled afib asymptomatic echo without acute findings lasix iv 40mg today low na diet daily weights monitor Code(s): I50.9 - HEART FAILURE, UNSPECIFIED (3) Hypokalemia Assessment/Plan: mild kcl po 40meq x 1 monitor bmp Code(s): E87.6 - HYPOKALEMIA (4) Hypertension Assessment/Plan: controlled continue home meds per bp parameters Code(s): I10 - ESSENTIAL (PRIMARY) HYPERTENSION Qualifiers: Hypertension type: essential hypertension Qualified Code(s): I10 - Essential (primary) hypertension
--- NOTE | 2017-11-22 20:49 | PN ---
Progress Note (short form) - Note Progress Note: 82 tear old female admitted with new onset atrial fib. with rapid ventricular response , productive cough and SOB. Found to be in acute LV failure, treated with IV lasix and digitalization for rate control. Active Medications Albuterol Sulfate (Ventolin 0.083% Nebulizer Soln -) 1 amp NEB Q4H PRN PRN Reason: SHORT OF BREATH/WHEEZING Amlodipine Besylate (Norvasc -) 10 mg PO DAILY [facility] Apixaban (Eliquis -) 2.5 mg PO BID [facility] Last Admin: 11/22/17 09:28 Dose: 2.5 mg Diltiazem HCl (Cardizem Injection -) 5 mg IVPUSH Q4H PRN PRN Reason: TACHYCARDIA Last Admin: 11/22/17 18:02 Dose: 5 mg Ferrous Sulfate (Feosol -) 325 mg PO DAILY [facility] Last Admin: 11/22/17 09:28 Dose: 325 mg Furosemide (Lasix Injection -) 40 mg IVPUSH DAILY [facility] Last Admin: 11/22/17 09:30 Dose: 40 mg Hydralazine HCl (Apresoline -) 50 mg PO DAILY [facility] Metoprolol Succinate (Toprol Xl -) 75 mg PO BID [facility] Pantoprazole Sodium (Protonix -) 40 mg PO DAILY [facility] Last Admin: 11/22/17 09:29 Dose: 40 mg Sertraline HCl (Zoloft -) 25 mg PO DAILY [facility] Last Admin: 11/22/17 09:31 Dose: 25 mg Tiotropium [place] (Spiriva Respimat) 2 puff IH DAILY [facility] Last Admin: 11/22/17 10:21 Dose: 2 puff Valsartan (Diovan -) 160 mg PO DAILY [facility] Last Admin: 11/22/17 09:28 Dose: 160 mg Last Vital Signs Temp Pulse Resp BP Pulse Ox 98.5 F 88 irregular 20 119/55 L 97 11/22/17 20:05 11/22/17 20:05 11/22/17 20:05 11/22/17 20:05 11/22/17 20:05 NECK: Supple, no JVD, NOHJR. carotids 2+ HEART: PMI in the 5th ICS, no heaves or thrills. S1 variable S2 normal grade I/ apical systolic murmur, SEMII/ systolic murmur at the 2nd rt. ICS.No gallops heard.LUNGS: Clear. ABDOMEN: soft, nontender, no organomegaly or masses felt. EXTREMITIES:No calf tenderness or dependent edema. CBC, BMP 11/22/17 06:25 11/22/17 06:25 DIGOXIN LEVEL: 1.5 IMPRESSION: 1. NEW onset atrila fibrillation, currently ventricular response. 2. Acute LV failure, resolving. 3. Hypertension. 4. H/o chronic astmatic bronchitis. RECOMMENDATIONS: 1. Recheck dig. level. 2. Digoxin 0.125 mg. po daily under close monitoring of dig. level and lytes. 3. F/u BMP.
[2017-11-23 06:53] LABS: BASO % 0.9 % (0-2.0); HEMATOCRIT 36.7 % (32.4-45.2); HEMOGLOBIN 12.1 GM/dL (10.7-15.3); LYMPH % 23.1 % (8-40); MCH 29.1 pg (25.7-33.7); MEAN CELL VOLUME 88.3 fl (80-96); MONO % 14.1 % (3.8-10.2); NEUT % 58.9 % (42.8-82.8); PLATELET COUNT 219 K/MM3 (134-434); RBC 4.16 M/mm3 (3.60-5.2); RDW 14.3 % (11.6-15.6); WHITE BLOOD COUNT 7.6 K/mm3 (4.0-10.0)
[2017-11-23 08:22] LABS: ANION GAP 10 MMOL/L (8-16); BLOOD UREA NITROGEN 24 mg/dL (7-18); CALCIUM 8.6 mg/dL (8.5-10.1); CHLORIDE 108 mmol/L (98-107); CO2 26 mmol/L (21-32); CREATININE 0.9 mg/dL (0.55-1.3); GLUCOSE,RANDOM 84 mg/dL (74-106); MAGNESIUM 2.4 mg/dL (1.8-2.4); POTASSIUM 4.1 mmol/L (3.5-5.1); SODIUM 145 mmol/L (136-145)
--- NOTE | 2017-11-23 09:53 | EKG ---
Test Reason : Blood Pressure : / mmHG Vent. Rate : 124 BPM Atrial Rate : 046 BPM P-R Int : 000 ms QRS Dur : 082 ms QT Int : 340 ms P-R-T Axes : 000 009 005 degrees QTc Int : 488 ms Suspect unspecified pacemaker failure ATRIAL FIBRILLATION WITH RAPID VENTRICULAR RESPONSE WITH FREQUENT AV dual-paced complexes NONSPECIFIC ST AND T WAVE ABNORMALITY ABNORMAL ECG WHEN COMPARED WITH ECG OF 14-SEP-2014 12:02, ELECTRONIC VENTRICULAR PACEMAKER HAS REPLACED SINUS RHYTHM VENT. RATE HAS INCREASED BY 67 BPM Confirmed by DARIO GRANGER, NORBERT ([id number]) on 11/23/2017 9:53:14 AM Referred By: Confirmed By:NORBERT BISHOP MD
[2017-11-23 10:00] VITALS: BP 120/60; TEMP 98
[2017-11-23] MEDS ORDERED: amLODIPine BESYLATE 10 MG TABLET (FP) PO SCH (10:00)
[2017-11-23] MEDS ORDERED: DIGOXIN 0.125 MG TABLET (FP) PO SCH (10:00)
[2017-11-23] MEDS: APIXABAN 2.5 MG TABLET PO SCH (10:01)
[2017-11-23] MEDS: VALSARTAN 160 MG TABLET (UD) PO SCH (10:01)
[2017-11-23] MEDS: SERTRALINE HCL 25 MG TABLET (FP) PO SCH (10:01)
[2017-11-23] MEDS: FERROUS SO4 325 MG TABLET (FP) PO SCH (10:01)
[2017-11-23] MEDS: PANTOPRAZOLE 40 MG TABLET (FP) PO SCH (10:01)
[2017-11-23] MEDS: FUROSEMIDE 40 MG/4 ML INJECTABLE VIAL IVPUSH SCH (10:02)
[2017-11-23 10:03] VITALS: PULSE 96
--- NOTE | 2017-11-23 10:46 | PN ---
Progress Note (short form) - Note Progress Note: 82 year old female admitted with new onset atrial fibrillation with rapid ventricular response, productive cough and SOB. Found to be in acute LV failure , treated with IV lasix and digitalization for rate control. Dose of metoprolol has been increased. Patient received her medicines a few minutes ago and needs to be ambulated to see if the ventricular rate is controlled, during ambulation. If patient continues to have rapid heart beat, consider further adjustment of therapy. Active Medications Albuterol Sulfate (Ventolin 0.083% Nebulizer Soln -) 1 amp NEB Q4H PRN PRN Reason: SHORT OF BREATH/WHEEZING Amlodipine Besylate (Norvasc -) 10 mg PO DAILY [facility] Last Admin: 11/23/17 10:02 Dose: 10 mg Apixaban (Eliquis -) 2.5 mg PO BID [facility] Last Admin: 11/23/17 10:01 Dose: 2.5 mg Digoxin (Lanoxin -) 0.125 mg PO DAILY [facility] Last Admin: 11/23/17 10:01 Dose: 0.125 mg Diltiazem HCl (Cardizem Injection -) 5 mg IVPUSH Q4H PRN PRN Reason: TACHYCARDIA Last Admin: 11/22/17 18:02 Dose: 5 mg Ferrous Sulfate (Feosol -) 325 mg PO DAILY [facility] Last Admin: 11/23/17 10:01 Dose: 325 mg Furosemide (Lasix Injection -) 40 mg IVPUSH DAILY [facility] Last Admin: 11/23/17 10:02 Dose: 40 mg Hydralazine HCl (Apresoline -) 50 mg PO DAILY [facility] Last Admin: 11/23/17 10:02 Dose: 50 mg Metoprolol Succinate (Toprol Xl -) 75 mg PO BID [facility] Last Admin: 11/23/17 10:02 Dose: 75 mg Pantoprazole Sodium (Protonix -) 40 mg PO DAILY [facility] Last Admin: 11/23/17 10:01 Dose: 40 mg Sertraline HCl (Zoloft -) 25 mg PO DAILY [facility] Last Admin: 11/23/17 10:01 Dose: 25 mg Tiotropium [place] (Spiriva Respimat) 2 puff IH DAILY [facility] Last Admin: 11/22/17 10:21 Dose: 2 puff Valsartan (Diovan -) 160 mg PO DAILY [facility] Last Admin: 11/23/17 10:01 Dose: 160 mg Last Vital Signs Temp Pulse Resp BP Pulse Ox 98 F 96 H 20 120/60 98 11/23/17 09:59 11/23/17 10:01 11/23/17 09:59 11/23/17 09:59 11/23/17 05:00 NECK: Supple, no jugular venous distention, negative hepatojugular reflex, carotids 2+ HEART: PMI in the 5th intercostal space, no heaves or thrills. S1 variable S2 normal, grade I/ apical systolic murmur, SEMI I/ systolic murmur at the 2nd right intercostal space.No gallops heard. LUNGS: Clear on ausculatation bilaterally. ABDOMEN: Soft, nontender, no organomegaly or masses felt. EXTREMITIES: No calf tenderness or dependent edema. CBC, BMP 11/23/17 05:30 11/23/17 05:30 Laboratory Results - last 24 hr 11/23/17 11/23/17 05:30 05:30 WBC 7.6 RBC 4.16 Hgb 12.1 Hct 36.7 MCV 88.3 MCH 29.1 MCHC 33.0 RDW 14.3 Plt Count 219 MPV 9.0 Absolute Neuts (auto) 4.5 Neutrophils % 58.9 Lymphocytes % 23.1 D Monocytes % 14.1 H Eosinophils % 3.0 Basophils % 0.9 Nucleated RBC % 0 Sodium 145 Potassium 4.1 Chloride 108 H Carbon Dioxide 26 Anion Gap 10 BUN 24 H Creatinine 0.9 Creat Clearance w eGFR 59.65 Random Glucose 84 Calcium 8.6 Magnesium 2.4 IMPRESSION: 1. New onset atrial fibrillation, with controlled ventricular response at rest and minimal exertion. 2. Acute LV failure, resolving. 3. Hypertension. 4. History of chronic asthmatic bronchitis. RECOMMENDATIONS: 1. Ambulate after giving the medication. 2. Follow up BMP and digoxin level. Problem List - Problems (1) Afib Code(s): I48.91 - UNSPECIFIED ATRIAL FIBRILLATION Qualifiers: Atrial fibrillation type: chronic Qualified Code(s): I48.2 - Chronic atrial fibrillation (2) CHF (congestive heart failure) Code(s): I50.9 - HEART FAILURE, UNSPECIFIED (3) Hypertension Code(s): I10 - ESSENTIAL (PRIMARY) HYPERTENSION Qualifiers: Hypertension type: essential hypertension Qualified Code(s): I10 - Essential (primary) hypertension
--- NOTE | 2017-11-23 12:22 | DS ---
Physical Examination Vital Signs: Vital Signs Temperature 98 F 11/23/17 09:59 Pulse Rate 96 H 11/23/17 10:01 Respiratory Rate 20 11/23/17 09:59 Blood Pressure 120/60 11/23/17 09:59 O2 Sat by Pulse Oximetry (%) 98 11/23/17 09:00 Constitutional: Yes: Well Nourished, No Distress, Calm Cardiovascular: Yes: Pulse Irregular Respiratory: Yes: WNL, Regular, CTA Bilaterally. No: Accessory Muscle Use, SOB , SOB on Exertion, Tachypnea, Wheezes Gastrointestinal: Yes: WNL, Normal Bowel Sounds, Soft. No: Distention, Tenderness Renal/: Yes: WNL Extremities: Yes: WNL Edema: No Neurological: Yes: WNL, Alert, Oriented Psychiatric: Yes: WNL, Alert, Oriented Labs: CBC, BMP 11/23/17 05:30 11/23/17 05:30 Discharge Summary Reason For Visit: CONGESTIVE HEART FAILURE,ATRIAL FIBRILLATION Current Active Problems Afib (Acute) Cough (Acute) Hypokalemia (Acute) Valvular disease (Acute) Hospital Course: is a 82 year old female admitted for afib with rvr, acute chf exacerbation. Pt evaluated by Cardiology. Echo without acute findings. Metoprolol increased to 75mg bid and pt started on digoxin 0.125mcg. Rate improved today, HR noted to be in 90s-110s upon ambulation, however pt asymptomatic, discussed with , pt cleared for discharge. Advise close outpt monitoring of digoxin level. Additionally, iv lasix transitioned to po lasix today. Otherwise, vitals stable, labs unremarkable. Pt is medically stable for discharge from hospital. f/u as directed 32 minutes spent in discharge planning Condition: Good - Instructions Diet, Activity, Other Instructions: ambulate as tolerated digoxin started, please f/u to check level outpt metoprolol increased to 75mg twice a day f/u as directed come to ED if any chest pain, sob, weakness, lightheadedness Referrals: Yudy Fields MD [Staff Physician] - 1 Week Boy Jones MD [Staff Physician] - 1 Week Disposition: HOME - Home Medications Comprehensive Discharge Medication List: Ambulatory Orders Sertraline HCl [Zoloft -] 25 mg PO DAILY 09/14/14 Alendronate Sodium [Binosto] 70 mg PO Q7D 11/21/17 Ferrous Sulfate 325 mg PO DAILY 11/21/17 Hydralazine HCl 50 mg PO DAILY 11/21/17 Pantoprazole Sodium 40 mg PO DAILY 11/21/17 Tiotropium [place] [Spiriva] 1 inh IH DAILY 11/21/17 Valsartan [Diovan] 160 mg PO DAILY 11/21/17 Amlodipine Besylate [Norvasc -] 10 mg PO DAILY tablet 11/23/17 Apixaban [Eliquis -] 2.5 mg PO BID tablet 11/23/17 Digoxin [Lanoxin -] 0.125 mg PO DAILY #30 tablet 11/23/17 Digoxin [Lanoxin -] 0.125 mg PO DAILY #30 tablet 11/23/17 Furosemide [Lasix -] 20 mg PO DAILY tablet 11/23/17 Metoprolol Succinate [Toprol XL -] 75 mg PO BID #60 tab.sr.24h 11/23/17
[2017-11-24] MEDS ORDERED: FUROSEMIDE 20 MG TABLET (FP) PO SCH (10:00)
== END 2017-11-23 13:08 | disposition home or self-care (01) ==
LOC: JER 17:24 → JERBED 20:50 → J4W 11-22 17:30
PROVIDERS: ADMIT Internal Medicine; ATTEND Internal Medicine
PROC: 3E033GC Introduction of Other Therapeutic Substance into Peripheral Vein, Percutaneous Approach (ICD-10-PCS; principal; 2017-11-21)
PROC: 3E0337Z Introduction of Electrolytic and Water Balance Substance into Peripheral Vein, Percutaneous Approach (ICD-10-PCS; 2017-11-21)
DX: I48.2 Chronic atrial fibrillation (principal); I50.9 Heart failure, unspecified; R05 Cough; I11.0 Hypertensive heart disease with heart failure; I34.1 Nonrheumatic mitral (valve) prolapse; J44.9 Chronic obstructive pulmonary disease, unspecified; K21.9 Gastro-esophageal reflux disease without esophagitis; K44.9 Diaphragmatic hernia without obstruction or gangrene; I49.5 Sick sinus syndrome; Z95.0 Presence of cardiac pacemaker; M81.0 Age-related osteoporosis without current pathological fracture
CPT/HCPCS: 36415; 71045-TC-FY; 80048; 80053; 80162; 82550; 83735; 83880; 84100; 84484; 85025; 85610; 85730; 93005; 93010; 93306-TC; 96361; 96374; 96375; 96376; 97116-GP; 97162-GP; 99285-25; G0378

== ENCOUNTER 2020-12-03 18:41 | Observation (INO) | payer OTHER ==
[2020-12-03] MEDS ORDERED: FUROSEMIDE 40 MG/4 ML INJECTABLE VIAL IVPUSH ONE (21:07)
[2020-12-03 21:08] LABS: HEMATOCRIT 36.9 % (32.4-45.2); HEMOGLOBIN 12.3 GM/dL (10.7-15.3); MCH 27.9 pg (25.7-33.7); MCHC 33.3 g/dl (32.0-36.0); MEAN CELL VOLUME 83.8 fl (80-96); MEAN PLT VOLUME 8.8 fl (7.5-11.1); PLATELET COUNT 231 10^3/uL (134-434); RBC 4.41 M/mm3 (3.60-5.2); RDW 15.2 % (11.6-15.6); WHITE BLOOD COUNT 8.7 K/mm3 (4.0-10.0)
[2020-12-03 21:15] LABS: INR 1.34 (0.83-1.09); PROTHROMBIN TIME (PATIENT) 15.7 SEC (9.7-13.0)
[2020-12-03 21:18] LABS: ACTIVATED PTT 29.8 SECONDS (25.2-36.5)
[2020-12-03 21:27] LABS: CHLORIDE 102 mmol/L (98-107); SODIUM 135 mmol/L (136-145)
[2020-12-03 21:29] LABS: CALCIUM 8.7 mg/dL (8.5-10.1)
[2020-12-03 21:30] LABS: ALBUMIN 3.1 g/dl (3.4-5.0); ANION GAP 12 MMOL/L (8-16); BLOOD UREA NITROGEN 14.5 mg/dL (7-18); CO2 21 mmol/L (21-32); GLUCOSE,RANDOM 122 mg/dL (74-106)
[2020-12-03 21:33] LABS: CREATININE 0.7 mg/dL (0.55-1.3); SGOT/AST 42 U/L (15-37); SGPT/ALT 34 U/L (13-61)
[2020-12-03 21:34] LABS: BILIRUBIN,TOTAL 1.3 mg/dL (0.2-1)
[2020-12-03 21:35] LABS: TOT PROT 7.2 g/dl (6.4-8.2)
[2020-12-03 21:36] LABS: ALK PHOS 54 U/L (45-117)
[2020-12-03 21:38] LABS: N-TERMINAL BNP 22282.3 pg/ml (5-450)
[2020-12-03] MEDS ORDERED: FUROSEMIDE 40 MG/4 ML INJECTABLE VIAL ONE (22:35)
[2020-12-03] MEDS ORDERED: APIXABAN 2.5 MG TABLET ONE (22:48)
[2020-12-03] MEDS: APIXABAN 2.5 MG TABLET PO SCH (22:52)
[2020-12-03 23:37] LABS: EPI CELLS 3 /uL (0-25.1); HYALINE CASTS 0 /uL (0-3.1); PH,URINE 5.5 (5.0-8.0); URINE APPEARANCE CLEAR; URINE BACTERIA 9 /uL (0-1359); URINE BILIRUBIN NEGATIVE (NEGATIVE); URINE COLOR YELLOW; URINE GLUCOSE (UA) NEGATIVE (NEGATIVE); URINE KETONE NEGATIVE (NEGATIVE); URINE LEUK ESTERASE NEGATIVE (NEGATIVE); URINE NITRITE NEGATIVE (NEGATIVE); URINE PROTEIN 2+ (NEGATIVE); URINE RBC 34 /uL (0-23.9); URINE UROBILINOGEN 0.2 mg/dL (0.2-1.0); URINE WBC 1 /uL (0-25.8)
[2020-12-04] MEDS ORDERED: FUROSEMIDE 40 MG/4 ML INJECTABLE VIAL IVPUSH ONE ×2 (00:05→14:00)
[2020-12-04] MEDS ORDERED: FUROSEMIDE 40 MG/4 ML INJECTABLE VIAL ONE (00:26)
[2020-12-04 04:25] VITALS: BMI 26.8
[2020-12-04 08:04] LABS: HEMATOCRIT 37.8 % (32.4-45.2); HEMOGLOBIN 12.7 GM/dL (10.7-15.3); MCH 27.9 pg (25.7-33.7); MCHC 33.6 g/dl (32.0-36.0); MEAN CELL VOLUME 82.9 fl (80-96); MEAN PLT VOLUME 8.8 fl (7.5-11.1); PLATELET COUNT 224 10^3/uL (134-434); RBC 4.56 M/mm3 (3.60-5.2); WHITE BLOOD COUNT 8.8 K/mm3 (4.0-10.0)
[2020-12-04 08:37] LABS: CALCIUM 8.7 mg/dL (8.5-10.1); MAGNESIUM 2.3 mg/dL (1.8-2.4)
[2020-12-04 08:38] LABS: ALBUMIN 3.2 g/dl (3.4-5.0)
[2020-12-04 08:39] LABS: BLOOD UREA NITROGEN 13.3 mg/dL (7-18)
[2020-12-04 08:41] LABS: CREATININE 0.8 mg/dL (0.55-1.3)
[2020-12-04 08:42] LABS: BILIRUBIN,TOTAL 1.7 mg/dL (0.2-1)
[2020-12-04] MEDS: FUROSEMIDE 40 MG/4 ML INJECTABLE VIAL IVPUSH SCH (08:53)
[2020-12-04] MEDS ORDERED: PT OWN MED DRAWER 7, Y5N ONE (09:24)
[2020-12-04] MEDS: PANTOPRAZOLE 40 MG TABLET PO SCH (09:26)
[2020-12-04] MEDS: APIXABAN 2.5 MG TABLET PO SCH ×2 (09:26→21:55)
[2020-12-04] MEDS: SERTRALINE HCL 25 MG TABLET (FP) PO SCH (09:26)
[2020-12-04] MEDS: TIOTROPIUM BROMIDE 2.5 MCG (SPIRIVA) RESPIMAT INHALER IH SCH (09:27)
[2020-12-04] MEDS ORDERED: DIGOXIN 0.125 MG TABLET PO SCH (10:00)
[2020-12-04] MEDS ORDERED: hydrALAZINE HCL 50 MG TABLET (FP) PO SCH (10:00)
[2020-12-04] MEDS ORDERED: amLODIPine BESYLATE 10 MG TABLET (FP) PO SCH (10:00)
[2020-12-04] MEDS: SACUBITRIL/VALSARTAN 24 MG-26 MG TABLET PO SCH (21:55)
[2020-12-05 07:09] VITALS: PULSE 65
[2020-12-05 07:42] LABS: HEMATOCRIT 38.9 % (32.4-45.2); HEMOGLOBIN 13.1 GM/dL (10.7-15.3); MCH 28.1 pg (25.7-33.7); MCHC 33.5 g/dl (32.0-36.0); MEAN CELL VOLUME 83.9 fl (80-96); MEAN PLT VOLUME 8.9 fl (7.5-11.1); PLATELET COUNT 259 10^3/uL (134-434); RBC 4.64 M/mm3 (3.60-5.2); RDW 15.1 % (11.6-15.6); WHITE BLOOD COUNT 9.5 K/mm3 (4.0-10.0)
[2020-12-05 08:33] LABS: ALBUMIN 2.7 g/dl (3.4-5.0); BLOOD UREA NITROGEN 14.4 mg/dL (7-18); CALCIUM 8.6 mg/dL (8.5-10.1)
[2020-12-05 08:36] LABS: CREATININE 0.8 mg/dL (0.55-1.3)
[2020-12-05 08:38] LABS: BILIRUBIN,TOTAL 1.4 mg/dL (0.2-1); TOT PROT 6.2 g/dl (6.4-8.2)
[2020-12-05] MEDS ORDERED: POTASSIUM CHLORIDE ORAL LIQUID 20 MEQ/15 ML PO ONE (08:48)
[2020-12-05] MEDS ORDERED: SPIRONOLACTONE 25 MG TABLET PO SCH (10:00)
[2020-12-05] MEDS ORDERED: PT OWN MED DRAWER 7, Y5N ONE (10:56)
[2020-12-05] MEDS: FUROSEMIDE 40 MG/4 ML INJECTABLE VIAL IVPUSH SCH (11:10)
[2020-12-05] MEDS: APIXABAN 2.5 MG TABLET PO SCH (11:17)
[2020-12-05] MEDS: PANTOPRAZOLE 40 MG TABLET PO SCH (11:18)
[2020-12-05] MEDS: SERTRALINE HCL 25 MG TABLET (FP) PO SCH (11:18)
[2020-12-05] MEDS: TIOTROPIUM BROMIDE 2.5 MCG (SPIRIVA) RESPIMAT INHALER IH SCH (11:20)
[2020-12-05] MEDS: SACUBITRIL/VALSARTAN 24 MG-26 MG TABLET PO SCH (11:20)
[2020-12-05 15:14] VITALS: BP 138/62; TEMP 97.7
[2020-12-06] MEDS ORDERED: FUROSEMIDE 20 MG TABLET (FP) PO SCH (10:00)
== END 2020-12-05 17:30 | disposition home or self-care (01) ==
LOC: JER 18:41 → UNDOADMOB 19:51 → INTOOBSV 19:51 → JERBED 19:51 → J7W 12-04 03:39 → JERBED 12-04 03:39 → J7W 12-04 10:49
PROVIDERS: ADMIT Internal Medicine; ATTEND Internal Medicine
DX: I48.91 Unspecified atrial fibrillation (principal); I10 Essential (primary) hypertension; J44.9 Chronic obstructive pulmonary disease, unspecified; Z86.73 Personal history of transient ischemic attack (TIA), and cerebral infarction without residual deficits; R06.02 Shortness of breath; R00.2 Palpitations; K44.9 Diaphragmatic hernia without obstruction or gangrene; I34.1 Nonrheumatic mitral (valve) prolapse; Z79.01 Long term (current) use of anticoagulants; Z95.0 Presence of cardiac pacemaker
CPT/HCPCS: 36415; 71045-TC-FY; 74230-TC-FY; 80053; 80162; 81003; 82550; 83735; 83880; 84100; 84443; 84484; 85027; 85610; 85730; 87804; 92611-GN; 93005; 93010; 93306-TC; 96374; 96376; 97116-GP; 97161-GP; 99285-25; C9803; G0378; U0003; U0005

== ENCOUNTER 2022-02-05 13:03 | Emergency (ER) | payer OTHER ==
[2022-02-05 13:24] VITALS: RESP 18; BMI 18.6
[2022-02-05 14:21] LABS: HEMATOCRIT 37.2 % (32.4-45.2); HEMOGLOBIN 12.8 G/dL (10.7-15.3); MCH 31.8 pg (25.7-33.7); MCHC 34.4 g/dl (32.0-36.0); MEAN CELL VOLUME 92.4 fl (80-96); MEAN PLT VOLUME 8.1 fl (7.5-11.1); PLATELET COUNT 184.9 10^3/uL (134-434); RBC 4.03 10^6/uL (3.60-5.2); RDW 15.3 % (11.6-15.6); WHITE BLOOD COUNT 8.1 10^3/uL (4.0-10.8)
[2022-02-05 15:42] LABS: PLATELET ESTIMATE ADEQUATE
[2022-02-05 15:59] LABS: ALBUMIN 3.8 g/dl (3.4-5.0); BILIRUBIN,TOTAL 1.1 mg/dl (0.2-1); CALCIUM 8.8 mg/dl (8.5-10); MAGNESIUM 2.2 mg/dL (1.8-2.4); PHOSPHOROUS 4.4 mg/dl (2.5-4.9); TOT PROT 7.2 g/dl (6.4-8.2)
[2022-02-05] MEDS ORDERED: SODIUM CHLORIDE 1 GM TABLET PO ONE (16:16)
[2022-02-05] MEDS ORDERED: ACETAMINOPHEN 325 MG TABLET (FP) PO PRN (17:03)
[2022-02-05 17:15] LABS: EPITHELIAL CELLS FEW /hpf
[2022-02-05 18:06] VITALS: BP 139/60; PULSE 72; TEMP 98.8
[2022-02-05 18:15] LABS: CALCIUM 9.1 mg/dl (8.5-10)
[2022-02-05] MEDS ORDERED: APIXABAN 2.5 MG TABLET PO SCH (22:00)
[2022-02-05] MEDS ORDERED: SACUBITRIL/VALSARTAN 24 MG-26 MG TABLET PO SCH (22:00)
[2022-02-05] MEDS ORDERED: METOPROLOL SUCCINATE 50 MG, METOPROLOL SUCCINATE 25 MG PO SCH (22:00)
[2022-02-05] MEDS ORDERED: ATORVASTATIN CA 20 MG TABLET (FP) PO SCH (22:00)
[2022-02-05] MEDS ORDERED: levETIRAcetam 500 MG TABLET (FP) PO SCH (22:00)
[2022-02-06] MEDS ORDERED: TIOTROPIUM BROMIDE 2.5 MCG (SPIRIVA) RESPIMAT INHALER IH SCH (10:00)
[2022-02-06] MEDS ORDERED: PANTOPRAZOLE 40 MG TABLET PO SCH (10:00)
[2022-02-06] MEDS ORDERED: SERTRALINE HCL 25 MG TABLET (FP) PO SCH (10:00)
== END 2022-02-05 19:00 | disposition home or self-care (01) ==
LOC: FER 13:03 → FM/S 16:25 → UNDOADMOB 16:25 → FER 18:58
DX: R79.9 Abnormal finding of blood chemistry, unspecified (principal)
CPT/HCPCS: 0241U-QW; 36415; 80048; 80053; 81003; 81015; 83735; 84100; 85027; 93005; 99284-25